=== PATIENT | female | born 1945 | race Caucasian/White ===

== ENCOUNTER 2019-02-25 17:05 | Inpatient (IN) | payer MEDICARE, OTHER ==
[~2019-02-25] VITALS: Ht 170.2 cm; Wt 56.2 kg
--- OUTSIDE RECORDS SUMMARY | 2019-02-25 17:07 | XMS REPORT | Clinical Summary ---
Author Author Martell Religious Organization [place] [facility] Address Unknown Phone Unavailable Care Team Providers Care Parking Regulation Enforcement Officer Name Role Phone Fran Lozoya MD PCP Allergies Comments Active Allergy Reactions Severity Noted Date Acetaminophen-Codeine Codeine GI 02/06/2016 Intolerance Medications End Date Status Medication Sig Dispensed Refills Start Date Active atorvastatin (LIPITOR) 20 Take 1 tablet 0 07/29/201 MG tablet by mouth 8 daily. Active omeprazole (PriLOSEC) 40 Take 1 0 10/26/201 MG capsule capsule by 8 mouth daily. Active albuterol (PROAIR Inhale 1 puff 18 g 3 HFA,PROVENTIL every 6 (six) 8 HFA,VENTOLIN HFA) 90 hours as mcg/actuation inhaler needed for wheezing. 02/11/2020 Active levothyroxine (SYNTHROID, Take 1 tablet 30 tablet 1 LEVOXYL) 75 mcg tablet (75 mcg 9 total) by mouth daily. 02/17/2020 Active clopidogrel (PLAVIX) 75 Take 1 tablet 30 tablet 1 201 mg tablet (75 mg total) 9 by mouth daily. 11/05/2018 Discontinued albuterol (PROAIR Inhale 1 puff 0 HFA,PROVENTIL every 6 (six) HFA,VENTOLIN HFA) 90 hours as mcg/actuation inhaler needed. 01/05/2019 Discontinued levothyroxine (SYNTHROID, Take 1 tablet 0 LEVOXYL) 100 mcg tablet by mouth 8 daily. 02/11/2019 Discontinued levothyroxine (SYNTHROID, Take 1 tablet 30 tablet 0 LEVOXYL) 75 mcg tablet (75 mcg 9 total) by mouth daily. 02/21/2019 oseltamivir (TAMIFLU) 75 Take 1 10 capsule 0 MG capsule capsule (75 9 mg total) by mouth 2 (two) times a day for 5 days. Active Problems Problem Noted Date Bilateral carotid artery stenosis 02/23/2019 Acquired hypothyroidism 11/05/2018 Pure hypercholesterolemia 11/05/2018 Other emphysema 11/05/2018 Type 2 diabetes mellitus with diabetic peripheral angiopathy without 10/08/2016 gangrene, without long-term current use of insulin Encounters Care Team Description Date Type Specialty Jonatan Hardy MD Bilateral carotid artery stenosis (Primary Dx) 02/23/2019 Office Visit Cardiology Fran Lozoya MD 02/17/2019 Telephone Internal Medicine Amarilis Altman MA 02/17/2019 Orders Only Family Medicine Cherelle Atkins MA 02/16/2019 Orders Only Internal Medicine Cherelle Atkins MA 02/11/2019 Telephone Internal Medicine Cherelle Atkins MA 02/11/2019 Orders Only Internal Medicine Fran Lozoya MD 02/03/2019 Telephone Internal Medicine Fran Lozoya MD 01/29/2019 Telephone Internal Medicine Fran Lozoya MD 01/05/2019 Telephone Internal Medicine Amarilis Altman MA Acquired hypothyroidism (Primary Dx); Bilateral carotid bruits; Type 2 diabetes mellitus with diabetic peripheral angiopathy without gangrene, without long-term current use of insulin (HCC) 11/06/2018 Orders Only Family Medicine Fran Lozoya MD Diabetes mellitus type 2, diet-controlled (HCC); Pure hypercholesterolemia; Other emphysema (HCC); Acquired hypothyroidism 11/05/2018 Lab Lab Fran Lozoya MD Acquired hypothyroidism (Primary Dx); Pure hypercholesterolemia; Other emphysema (HCC); Diabetes mellitus type 2, diet-controlled (HCC); Muscular dystrophy; Carotid bruit, unspecified laterality; Gallstones 11/05/2018 Office Visit Internal Medicine Fran Lozoya MD 10/29/2018 Telephone Family Medicine after 02/24/2018 Social History Date Tobacco Use Types Packs/Day Years Used Started: 12/01/2013 Current Every Day Smoker 1 Smokeless Tobacco: Never Used Tobacco Cessation: Ready to Quit: No; Counseling Given: No Alcohol Use Drinks/Week oz/Week Comments No Alcohol Habits Answer Date Recorded How often do you have a drink containing alcohol? Never 11/05/2018 How many drinks containing alcohol do you have on Not asked a typical day when you are drinking? How often do you have six or more drinks on one Not asked occasion? Sex Assigned at Date Recorded Not on file Industry Job Start Date Occupation Not on file Not on file Not on file Travel End Travel History Travel Start No recent travel history available. Last Filed Vital Signs Time Taken Vital Sign Reading 02/23/2019 10:33 AM CDT Blood Pressure 137/68 02/23/2019 10:33 AM CDT Pulse 97 11/05/2018 8:25 AM ASSET SPECIALIST Temperature 36.6 C (97.9 F) - Respiratory Rate - 11/05/2018 8:25 AM ASSET SPECIALIST Oxygen Saturation 95% - Inhaled Oxygen - Concentration 02/23/2019 10:33 AM CDT Weight 53.1 kg (117 lb) 02/23/2019 10:33 AM CDT Height 170.2 cm (5' 7") 02/23/2019 10:33 AM CDT Body Mass Index 18.32 Plan of Treatment Care Team Description Date Type Specialty [place], Raul Sanford MD [address] [address] 03/01/2019 Office Visit Neurology Health Maintenance Due Date Last Done Comments DIABETIC RETINAL EYE EXAM 1944 DIABETIC FOOT EXAM 1954 BREAST CANCER SCREENING 1994 COLON CANCER SCREENING 1994 SHINGLES VACCINES (#1) 1994 65+ PNEUMOCOCCAL VACCINE 2009 (1 of 2 - PCV13) PNEUMOCOCCAL 2009 POLYSACCHARIDE VACCINE AGE 65 AND OVER INFLUENZA VACCINE 07/01/2018 URINE MICROALBUMIN 11/05/2019 11/05/2018 Procedures Comments Procedure Name Priority Date/Time Associated Diagnosis US CAROTID DUPLEX Routine 02/11/2019 Acquired hypothyroidism BILATERAL 2:40 PM CDT Type 2 diabetes mellitus with diabetic peripheral angiopathy without gangrene, without long-term current use of insulin (HCC) Bilateral carotid bruits THYROID STIMULATING Routine 11/05/2018 Acquired hypothyroidism HORMONE 9:20 AM ASSET SPECIALIST HEMOGLOBIN A1C Routine 11/05/2018 Diabetes mellitus type 2, 9:20 AM ASSET SPECIALIST diet-controlled (HCC) LIPID PANEL Routine 11/05/2018 Pure hypercholesterolemia 9:20 AM ASSET SPECIALIST CBC WITH PLATELET AND Routine 11/05/2018 Other emphysema (HCC) DIFFERENTIAL 9:20 AM ASSET SPECIALIST HEPATIC FUNCTION PANEL Routine 11/05/2018 Pure hypercholesterolemia 9:20 AM ASSET SPECIALIST BASIC METABOLIC PANEL Routine 11/05/2018 Diabetes mellitus type 2, 9:20 AM ASSET SPECIALIST diet-controlled (HCC) MICROALBUMIN / CREATININE Routine 11/05/2018 Diabetes mellitus type 2, URINE RATIO 9:20 AM ASSET SPECIALIST diet-controlled (HCC) after 02/24/2018 Results * Us carotid duplex (02/11/2019 2:40 PM CDT) Narrative Performed At [facility] Carotid Artery Ultrasound Report Pat.Name:ENRRIQUE QUINTANA [facility].ID:[id number] St.Date: 02/11/2019 Refer.MD:FRAN LOZOYA MD Exam Time: 2:11:00 PMStudy Type:Carotid DOBAge:1945,73Y Sex: FEMALE Sonogrphr: Tracie Hidalgo RVT Pat. Stat.:[facility] - 4: [id number] Echo Event ID:[id number] Order ID:[id number] Reason for Study:Bilateral carotid bruit, Bilateral occasional vision problems as per patient, Hx of HLD, DM2. Procedures:Colorflow, Grayscale/2D, Pulsed wave Doppler SUMMARY: CAROTID ARTERY SCAN RIGHT:There is hard plaque in the distal common carotid artery. There is hard and calcifiedplaque noted in the bulb extending into the proximal internal and external carotid artery.Colorflow is disturbed with elevated velocities.There is antegrade flow in the vertebral artery. LEFT: There is intimal thickening in the common carotid artery. There is hard and calcifiedplaque noted in the bulb extending into the proximal internal and external carotid artery.Colorflow is disturbed with elevated velocities.There is antegrade flow in the vertebral artery. PRELIMINARY FINDINGS 1.80-99% stenosis in the right proximal internal carotid artery. 2. 50-69% stenosis in the left bulb/internal carotid artery. 3. >50% stenosis in the external carotid artery, bilaterally. PHYSICIAN INTERPRETATION Bilateral carotid duplex exam demonstrates atherosclerotic plaque in both external, bulb and internal carotid arteries with 80-99% stenosis in the right proximal internal carotid artery and 50-69% stenosis in the left bulb/internal carotid artery. >50% stenosis in the external carotid artery, bilaterally. There is antegrade flow in the vertebral artery, bilaterally. Carotid Findings:RightLeft Verteb.Flw AntegradeAntegrade Subclavian TriphasicBiphasic MEASUREMENTS: DOPPLER Right CCA Dist CCA Dist PSV63.4 cm/sCCA Dist EDV17.5 cm/s Right CCA Mid CCA Mid PSV 65.6 cm/sCCA Mid EDV 13.1 cm/s Right CCA Prox CCA Prox PSV70 cm/sCCA Prox EDV12 cm/s Right Bulb Bulb PSV59.1 cm/sBulb EDV14.2 cm/s Right ECA Prox ECA Prox PSV 213 cm/sECA Prox EDV24.3 cm/s Right ICA Dist ICA Dist PSV56.6 cm/Xavier Dist EDV15.4 cm/s Right ICA Mid ICA Mid PSV 72 cm/Xavier Mid EDV 15.4 cm/s Right ICA Prox ICA Prox PSV 503 cm/Xavier Prox EDV 217 cm/s Right Vertebral Vertebral PSV 68.6 cm/sVertebral EDV 13.7 cm/s Right SCA Prox SCA Prox PSV 152 cm/sSCA Prox EDV 0 cm/s Left CCA Dist CCA Dist PSV83.1 cm/sCCA Dist EDV17.5 cm/s Left CCA Mid CCA Mid PSV 89.7 cm/sCCA Mid EDV 21.9 cm/s Left CCA Prox CCA Prox PSV96.2 cm/sCCA Prox EDV21.9 cm/s Left Bulb Bulb PSV85.3 cm/sBulb EDV17.5 cm/s Left ECA ECA HEO150 cm/sECA EDV 13.5 cm/s Left ICA Dist ICA Dist PSV89.5 cm/Xavier Dist EDV26.1 cm/s Left ICA Mid ICA Mid SHQ644 cm/Xavier Mid EDV 40.5 cm/s Left ICA Prox ICA Prox PSV 173 cm/Xavier Prox EDV51.3 cm/s Left Vertebral Vertebral PSV 70.9 cm/sVertebral EDV 14.9 cm/s SCA Prox SCA Prox PSV 148 cm/sSCA Prox EDV 0 cm/s Right ICA/CCA Ratio ICA/CCA PSV 7.67 Left ICA/CCA Ratio ICA/CCA PSV 1.93 Left ECA Prox ECA Prox PSV 224 cm/sECA Prox EDV13 cm/s Signed 02/12/2019 07:22 PM Jonatan Hardy MD Procedure Note Interface, Radiology Results In - 02/12/2019 7:23 PM CDT [facility] Carotid Artery Ultrasound Report Pat.Name: ENRRIQUE QUINTANA Pat.ID: [id number] .Date: 02/11/2019 Refer.MD: FRAN LOZOYA MD Exam Time: 2:11:00 PM Study Type:Carotid Age: 5 1945,73Y Sex: FEMALE Sonogrphr: Tracie Hidalgo RVT Pat. Stat.:Outpatient Room: [facility] Vol: [place], CPT - 4: [id number] Echo Event ID:[id number] Order ID: [id number] Reason for Study:Bilateral carotid bruit, Bilateral occasional vision problems as per patient, Hx of HLD, DM2. Procedures:Colorflow, Grayscale/2D, Pulsed wave Doppler SUMMARY: CAROTID ARTERY SCAN RIGHT: There is hard plaque in the distal common carotid artery. There is hard and calcified plaque noted in the bulb extending into the proximal internal and external carotid artery. Colorflow is disturbed with elevated velocities. There is antegrade flow in the vertebral artery. LEFT: There is intimal thickening in the common carotid artery. There is hard and calcified plaque noted in the bulb extending into the proximal internal and external carotid artery. Colorflow is disturbed with elevated velocities. There is antegrade flow in the vertebral artery. PRELIMINARY FINDINGS 1. 80-99% stenosis in the right proximal internal carotid artery. 2. 50-69% stenosis in the left bulb/internal carotid artery. 3. >50% stenosis in the external carotid artery, bilaterally. PHYSICIAN INTERPRETATION Bilateral carotid duplex exam demonstrates atherosclerotic plaque in both external, bulb and internal carotid arteries with 80-99% stenosis in the right proximal internal carotid artery and 50-69% stenosis in the left bulb/internal carotid artery. >50% stenosis in the external carotid artery, bilaterally. There is antegrade flow in the vertebral artery, bilaterally. Carotid Findings: Right Left Verteb.Flw Antegrade Antegrade Subclavian Triphasic Biphasic MEASUREMENTS: DOPPLER Right CCA Dist CCA Dist PSV 63.4 cm/s CCA Dist EDV 17.5 cm/s Right CCA Mid CCA Mid PSV 65.6 cm/s CCA Mid EDV 13.1 cm/s Right CCA Prox CCA Prox PSV 70 cm/s CCA Prox EDV 12 cm/s Right Bulb Bulb PSV 59.1 cm/s Bulb EDV 14.2 cm/s Right ECA Prox ECA Prox PSV 213 cm/s ECA Prox EDV 24.3 cm/s Right ICA Dist ICA Dist PSV 56.6 cm/s ICA Dist EDV 15.4 cm/s Right ICA Mid ICA Mid PSV 72 cm/s ICA Mid EDV 15.4 cm/s Right ICA Prox ICA Prox PSV 503 cm/s ICA Prox EDV 217 cm/s Right Vertebral Vertebral PSV 68.6 cm/s Vertebral EDV 13.7 cm/s Right SCA Prox SCA Prox PSV 152 cm/s SCA Prox EDV 0 cm/s Left CCA Dist CCA Dist PSV 83.1 cm/s CCA Dist EDV 17.5 cm/s Left CCA Mid CCA Mid PSV 89.7 cm/s CCA Mid EDV 21.9 cm/s Left CCA Prox CCA Prox PSV 96.2 cm/s CCA Prox EDV 21.9 cm/s Left Bulb Bulb PSV 85.3 cm/s Bulb EDV 17.5 cm/s Left ECA ECA PSV 224 cm/s ECA EDV 13.5 cm/s Left ICA Dist ICA Dist PSV 89.5 cm/s ICA Dist EDV 26.1 cm/s Left ICA Mid ICA Mid PSV 135 cm/s ICA Mid EDV 40.5 cm/s Left ICA Prox ICA Prox PSV 173 cm/s ICA Prox EDV 51.3 cm/s Left Vertebral Vertebral PSV 70.9 cm/s Vertebral EDV 14.9 cm/s SCA Prox SCA Prox PSV 148 cm/s SCA Prox EDV 0 cm/s Right ICA/CCA Ratio ICA/CCA PSV 7.67 Left ICA/CCA Ratio ICA/CCA PSV 1.93 Left ECA Prox ECA Prox PSV 224 cm/s ECA Prox EDV 13 cm/s Signed 02/12/2019 07:22 PM Jonatan Hardy MD Performing Organization Address City/State/[facility] Phone Number [facility] [address] [place] [address] * Microalbumin / creatinine urine ratio (11/05/2018 9:20 AM ASSET SPECIALIST) Creatinine, urine, random 72 20 - 275 mg/dL [facility] [place] Microalbumin, urine 1.7 See Note: mg/dL [facility] Comment: [place] Reference Range: Reference Range Not established Microalbumin/creatinine 24 <30 mcg/mg creat [facility] ratio Comment: [place] The ADA defines abnormalities in albumin excretion as follows: Category Result (mcg/mg creatinine) Normal <30 Microalbuminuria 30-299 Clinical albuminuria > NC=332 The ADA recommends that at least two of three specimens collected within a 3-6 month period be abnormal before considering a patient to be within a diagnostic category. Specimen Urine Resulting Agency Comment Performing Organization Information: Site ID: [id number] Name: [facility] Address: [address] [place] [phone] Director: Albertina Wright Performing Organization Address [facility]/Zipcode Phone Number [place] [address] [address] * CBC with platelet and differential (11/05/2018 9:20 AM ASSET SPECIALIST) WBC 7.5 3.8 - 10.8 Thousand/uL [employer] [place] RBC 5.43 (H) 3.80 - 5.10 Million/uL [employer] [place] HGB 14.9 11.7 - 15.5 g/dL [facility] [place] HCT 45.3 (H) 35.0 - 45.0 % [facility] [place] MCV 83.4 80.0 - 100.0 fL [employer] [place] MCH 27.4 27.0 - 33.0 pg [facility] [place] MCHC 32.9 32.0 - 36.0 g/dL [employer] [place] RDW 13.1 11.0 - 15.0 % [facility] [place] Platelet count 195 140 - 400 Thousand/uL [facility] [employer] [place] MPV 9.9 7.5 - 12.5 fL [employer] [place] Neutrophils, absolute 4,620 1,500 - 7,800 cells/uL [employer] [place] Lymphocytes, absolute 2,415 850 - 3,900 cells/uL [employer] [place] Monocytes, absolute 368 200 - 950 cells/uL [employer] [place] Eosinophils, absolute 60 15 - 500 cells/uL [employer] [place] Basophils, absolute 38 0 - 200 cells/uL [employer] [place] Neutrophils 61.6 % [employer] [place] Lymphocytes 32.2 % [employer] [place] Monocytes 4.9 % [employer] [place] Eosinophils 0.8 % [employer] [place] Basophils + RC 0.5 % [employer] [place] Specimen Urine Resulting Agency Comment Performing Organization Information: Site ID: [id number] Name: [facility] Address: [address] [place] [phone] Director: Albertina Wright Performing Organization Address City/[facility]/Zipcode Phone Number [place] [address] [address] * Thyroid stimulating hormone (11/05/2018 9:20 AM ASSET SPECIALIST) TSH 0.06 (L) 0.40 - 4.50 mIU/L [employer] [place] Specimen Urine Resulting Agency Comment Performing Organization Information: Site ID: [id number] Name: [facility] Address: [address] [place] [phone] Director: Albertina Wright Performing Organization Address [facility] [place] [address] * Hemoglobin A1c (11/05/2018 9:20 AM ASSET SPECIALIST) Hemoglobin A1C 6.5 (H) <5.7 % of total Hgb [facility] Comment: [place] For someone without known diabetes, a hemoglobin A1c value of 6.5% or greater indicates that they may have diabetes and this should be confirmed with a follow-up test. For someone with known diabetes, a value <7% indicates that their diabetes is well controlled and a value greater than or equal to 7% indicates suboptimal control. A1c targets should be individualized based on duration of diabetes, age, comorbid conditions, and other considerations. Currently, no consensus exists regarding use of hemoglobin A1c for diagnosis of diabetes for children. Specimen Urine Resulting Agency Comment Performing Organization Information: Site ID: [id number] Name: [facility] Address: [address] [place] [phone] Director: Albertina Wright Performing Organization Address [facility] Phone Number [place] [address] [address] * Hepatic function panel (11/05/2018 9:20 AM ASSET SPECIALIST) Protein 7.1 6.1 - 8.1 g/dL [facility] [employer] [place] Albumin, S 4.3 3.6 - 5.1 g/dL [employer] [place] Globulin, total 2.8 1.9 - 3.7 g/dL (calc) [facility] [employer] [place] Albumin/globulin ratio 1.5 1.0 - 2.5 (calc) [employer] [place] Total bilirubin 0.4 0.2 - 1.2 mg/dL [employer] [place] Bilirubin direct 0.1 < OR=0.2 mg/dL [employer] [place] Bilirubin, indirect 0.3 0.2 - 1.2 mg/dL (calc) [facility] [place] Alkaline phosphatase 87 33 - 130 U/L [facility] [employer] [place] AST 16 10 - 35 U/L [employer] [place] ALT 15 6 - 29 U/L [employer] [place] Specimen Urine Resulting Agency Comment Performing Organization Information: Site ID: [id number] Name: [facility] Address: [address] [place] [phone] Director: Albertina Wright Performing Organization Address [facility] Phone Number [facility] [address] [address] * Lipid panel (11/05/2018 9:20 AM ASSET SPECIALIST) Cholesterol, total 167 <200 mg/dL [facility] HDL cholesterol 78 >50 mg/dL [facility] Triglycerides 72 <150 mg/dL [facility] LDL cholesterol 74 mg/dL (calc) [facility] calculated Comment: [place] Reference range: <100 Desirable range <100 mg/dL for primary prevention; <70 mg/dL for patients with CHD or diabetic patients with > or=2 CHD risk factors. LDL-C is now calculated using the Alka calculation, which is a validated novel method providing better accuracy than the Friedewald equation in the estimation of LDL-C. Guillermo SS et al. [place]. 2013;310(19): 4091-4097 (http://education.[employer]/faq/CXV938) Cholesterol/HDL ratio 2.1 <5.0 (calc) [facility] [place] Non-HDL cholesterol 89 <130 mg/dL (calc) [facility] Comment: [place] For patients with diabetes plus 1 major ASCVD risk factor, treating to a non-HDL-C goal of <100 mg/dL (LDL-C of <70 mg/dL) is considered a therapeutic option. Specimen Urine Resulting Agency Comment Performing Organization Information: Site ID: [id number] Name: [facility] Address: [address] [place] [phone] Director: Albertina Wright Performing Organization Address [facility] Phone Number [employer] [address] [address] * Basic metabolic panel (11/05/2018 9:20 AM ASSET SPECIALIST) Glucose 81 65 - 99 mg/dL [employer] Comment: [place] Fasting reference interval BUN, whole blood 17 7 - 25 mg/dL [employer] [place] Creatinine 0.53 (L) 0.60 - 0.93 mg/dL [employer] Comment: [place] For patients >49 years of age, the reference limit for Creatinine is approximately 13% higher for people identified as -Citizen Of [place]. EGFR Non-Afr. Citizen Of [place] 94 > OR=60 mL/min/1.73m2 [employer] [place] EGFR 108 > OR=60 mL/min/1.73m2 [employer] [place] BUN/creatinine ratio 32 (H) 6 - 22 (calc) [employer] [place] Sodium 141 135 - 146 mmol/L [employer] [place] Potassium 4.3 3.5 - 5.3 mmol/L [facility] Chloride 102 98 - 110 mmol/L [facility] CO2 29 20 - 32 mmol/L [employer] [place] Calcium 9.8 8.6 - 10.4 mg/dL [employer] [place] Specimen Urine Resulting Agency Comment Performing Organization Information: Site ID: [id number] Name: [facility] Address: [address] [place] [address] Director: Albertina Wright Performing Organization Address City/State/Zipcode Phone Number [employer] [place] [address] [place] [address] after 02/24/2018 Insurance Payer Benefit Subscriber ID Type Phone Address Plan / Group MEDICARE MEDICARE xxxxxxxxxxx Medicare [place], [place] PART A AND B CIGNA CIGNA OPEN xxxxxxxxxxx HMO ACCESS/NET WORK Advance Directives Patient has advance care planning documents on file. For more information, ta chan contact: Jasbir Gallo [address] [place] [address]
[2019-02-25] MEDS ORDERED: ALBUTEROL/IPRATROPIUM 3 ML NEB NEB ONE (17:45)
--- NOTE | 2019-02-25 18:04 | Diagnostic Imaging Report ---
EXAMINATION: CXR 1 [facility] COMPARISON: None INDICATION: Shortness of breath for approximately 3 weeks DISCUSSION: Frontal view of the chest obtained at 1740 hours. HEART AND MEDIASTINUM: The cardiomediastinal silhouette is unremarkable. LINES: None. LUNGS: The lungs are diffusely hyperinflated. There is mild bronchial wall thickening. Reticulonodular airspace opacities in the base of the left lung without katie consolidation. No interstitial thickening. PLEURA: No pleural effusion or pneumothorax. BONES AND SOFT TISSUES: No focal osseous lesion. The soft tissues are normal. IMPRESSION: Pulmonary hyperinflation suggestive of COPD. Reticulonodular airspace opacities in the left lung base may represent bronchopneumonia. Signed by: Dr. Tiffanie Lewis MD on 02/25/2019 6:01 PM
[2019-02-25] MEDS ORDERED: ATROVENT HFA12.9 GM (18:12)
[2019-02-25] MEDS ORDERED: ASPIR 8181 MG PO (18:12)
[2019-02-25] MEDS ORDERED: VENTOLIN HFA18 GM (18:12)
[2019-02-25] MEDS ORDERED: PLAVIX75 MG PO (18:12)
[2019-02-25] MEDS ORDERED: LEVOTHYROXINE75 MCG PO (18:12)
[2019-02-25] MEDS ORDERED: ALBUTEROL0.63 MG/3 NEB (18:12)
--- OUTSIDE RECORDS SUMMARY | 2019-02-25 18:47 | XMS REPORT | Clinical Summary ---
Author Author [facility] Address Unknown Phone Unavailable Care Team Providers Care Aerospace Project Manager Name Role Phone Fran Lozoya MD PCP [...] AM CDT Pulse 97 11/05/2018 8:25 AM CHIEF PASSENGER SHIP STEWARD/STEWARDESS Temperature 36.6 C (97.9 F) - Respiratory Rate - 11/05/2018 8:25 AM CHIEF PASSENGER SHIP STEWARD/STEWARDESS Oxygen Saturation 95% - Inhaled Oxygen - Concentration 02/23/2019 10:33 AM CDT Weight 53.1 kg (117 lb) 02/23/2019 10:33 AM CDT Height 170.2 cm (5' 7") 02/23/2019 10:33 AM CDT Body Mass Index 18.32 Plan of Treatment Care Team Description Date Type Specialty [place], Raul Sanford MD [address] [address] 03/01/2019 Office Visit Neurology Health [...] Routine 11/05/2018 Acquired hypothyroidism HORMONE 9:20 AM CHIEF PASSENGER SHIP STEWARD/STEWARDESS HEMOGLOBIN A1C Routine 11/05/2018 Diabetes mellitus type 2, 9:20 AM CHIEF PASSENGER SHIP STEWARD/STEWARDESS diet-controlled (HCC) LIPID PANEL Routine 11/05/2018 Pure hypercholesterolemia 9:20 AM CHIEF PASSENGER SHIP STEWARD/STEWARDESS CBC WITH PLATELET AND Routine 11/05/2018 Other emphysema (HCC) DIFFERENTIAL 9:20 AM CHIEF PASSENGER SHIP STEWARD/STEWARDESS HEPATIC FUNCTION PANEL Routine 11/05/2018 Pure hypercholesterolemia 9:20 AM CHIEF PASSENGER SHIP STEWARD/STEWARDESS BASIC METABOLIC PANEL Routine 11/05/2018 Diabetes mellitus type 2, 9:20 AM CHIEF PASSENGER SHIP STEWARD/STEWARDESS diet-controlled (HCC) MICROALBUMIN / CREATININE Routine 11/05/2018 Diabetes mellitus type 2, URINE RATIO 9:20 AM CHIEF PASSENGER SHIP STEWARD/STEWARDESS diet-controlled (HCC) after 02/24/2018 Results * Us carotid duplex (02/11/2019 2:40 PM CDT) Narrative Performed At [facility] Carotid Artery Ultrasound Report Pat.Name:ENRRIQUE QUINTANA [facility].ID:[id number] St.Date: 02/11/2019 Refer.MD:FRAN LOZOYA MD Exam Time: 2:11:00 PMStudy Type:Carotid DOBAge:1945,73Y Sex: FEMALE Sonogrphr: Tracie Hidalgo RVT Pat. Stat.:[facility] - 4: [address] Echo Event ID:[id number] Order ID:[id number] Reason for Study:Bilateral carotid bruit, Bilateral occasional [...] PSV85.3 cm/sBulb EDV17.5 cm/s Left ECA ECA MPQ279 cm/sECA EDV 13.5 cm/s Left ICA Dist ICA Dist PSV89.5 cm/Xavier Dist EDV26.1 cm/s Left ICA Mid ICA Mid JAE832 cm/Xavier Mid EDV 40.5 cm/s Left ICA [...] Results In - 02/12/2019 7:23 PM CDT [facility] Carotid Artery Ultrasound Report Pat.Name: ENRRIQUE QUINTANA Pat.ID: [id number] .Date: 02/11/2019 Refer.MD: FRAN LOZOYA MD Exam Time: 2:11:00 PM Study Type:Carotid Age: 5 1945,73Y Sex: FEMALE Sonogrphr: Tracie Hidalgo RVT Pat. Stat.:Outpatient Room: [facility] Vol: [place], CPT - 4: 52370 Echo Event ID:[id number] Order ID: [id number] Reason for Study:Bilateral carotid bruit, Bilateral occasional [...] PM Jonatan Hardy MD Performing Organization Address City/State/[facility] Phone Number [facility] [address] [place] [address] * Microalbumin / creatinine urine ratio (11/05/2018 9:20 AM CHIEF PASSENGER SHIP STEWARD/STEWARDESS) Creatinine, urine, random 72 20 - 275 mg/dL [facility] [place] Microalbumin, urine 1.7 See Note: mg/dL [facility] Comment: [place] Reference Range: Reference Range Not established Microalbumin/creatinine 24 <30 mcg/mg creat [facility] ratio Comment: [place] The ADA defines abnormalities in albumin excretion as follows: Category Result (mcg/mg creatinine) Normal <30 Microalbuminuria 30-299 Clinical albuminuria > [id number]=391 The ADA recommends that at least two of three specimens collected within a 3-6 month period be abnormal before considering a patient to be within a diagnostic category. Specimen Urine Resulting Agency Comment Performing Organization Information: Site ID: [id number] Name: [facility] Address: [address] [place] [phone] Director: Albertina Wright Performing Organization Address [facility]/Zipcode Phone Number [employer] [address] [address] * CBC with platelet and differential (11/05/2018 9:20 AM CHIEF PASSENGER SHIP STEWARD/STEWARDESS) WBC 7.5 3.8 - 10.8 Thousand/uL [employer] [place] RBC 5.43 (H) 3.80 - 5.10 Million/uL [facility] [place] HGB 14.9 11.7 - 15.5 g/dL [facility] [place] HCT 45.3 (H) 35.0 - 45.0 % [facility] [place] MCV 83.4 80.0 - 100.0 fL [facility] [place] MCH 27.4 27.0 - 33.0 pg [facility] [place] MCHC 32.9 32.0 - 36.0 g/dL [facility] [place] RDW 13.1 11.0 - 15.0 % [facility] [place] Platelet count 195 140 - 400 Thousand/uL [facility] [place] MPV 9.9 7.5 - 12.5 fL [employer] [place] Neutrophils, absolute 4,620 1,500 - 7,800 cells/uL [facility] [place] Lymphocytes, absolute 2,415 850 - 3,900 cells/uL [facility] [place] Monocytes, absolute 368 200 - 950 cells/uL [facility] [place] Eosinophils, absolute 60 15 - 500 cells/uL [facility] [place] Basophils, absolute 38 0 - 200 cells/uL [facility] [place] Neutrophils 61.6 % [facility] [place] Lymphocytes 32.2 % [facility] [place] Monocytes 4.9 % [facility] [place] Eosinophils 0.8 % [facility] [place] Basophils + RC 0.5 % [facility] [place] Specimen Urine Resulting Agency Comment Performing Organization Information: Site ID: [id number] Name: [facility] Address: [address] [place] [phone] Director: Albertina Wright Performing Organization Address City/[facility]/Zipcode Phone Number [employer] [address] [address] * Thyroid stimulating hormone (11/05/2018 9:20 AM CHIEF PASSENGER SHIP STEWARD/STEWARDESS) TSH 0.06 (L) 0.40 - 4.50 mIU/L [facility] [place] Specimen Urine Resulting Agency Comment Performing Organization Information: Site ID: [id number] Name: [facility] Address: [address] [place] [phone] Director: Albertina Wright Performing Organization Address [facility] Phone [place] [address] * Hemoglobin A1c (11/05/2018 9:20 AM CHIEF PASSENGER SHIP STEWARD/STEWARDESS) Hemoglobin A1C 6.5 (H) <5.7 % of total Hgb [facility] Comment: [place] For someone without known diabetes, a hemoglobin [...] Performing Organization Information: Site ID: [id number] Name: [facility] Address: [address] [place] [phone] Director: Albertina Wright Performing Organization Address [facility] Phone Number [employer] [address] [address] * Hepatic function panel (11/05/2018 9:20 AM CHIEF PASSENGER SHIP STEWARD/STEWARDESS) Protein 7.1 6.1 - 8.1 g/dL [facility] [place] Albumin, S 4.3 3.6 - 5.1 g/dL [facility] [place] Globulin, total 2.8 1.9 - 3.7 g/dL (calc) [facility] [place] Albumin/globulin ratio 1.5 1.0 - 2.5 (calc) [facility] [place] Total bilirubin 0.4 0.2 - 1.2 mg/dL [facility] [place] Bilirubin direct 0.1 < OR=0.2 mg/dL [facility] [place] Bilirubin, indirect 0.3 0.2 - 1.2 mg/dL (calc) [facility] [place] Alkaline phosphatase 87 33 - 130 U/L [facility] [place] AST 16 10 - 35 U/L [facility] [place] ALT 15 6 - 29 U/L [facility] [place] Specimen Urine Resulting Agency Comment Performing Organization Information: Site ID: [id number] Name: [facility] Address: [address] [place] [phone] Director: Albertina Wright Performing Organization Address [facility] Phone Number [facility] [employer] [address] [address] * Lipid panel (11/05/2018 9:20 AM CHIEF PASSENGER SHIP STEWARD/STEWARDESS) Cholesterol, total 167 <200 mg/dL [facility] HDL cholesterol 78 >50 mg/dL [facility] Triglycerides 72 <150 mg/dL [facility] [employer] [facility] [facility] LDL cholesterol 74 mg/dL (calc) [facility] calculated Comment: [place] Reference range: <100 Desirable range <100 mg/dL for primary prevention; <70 mg/dL for patients with CHD or diabetic patients with > or=2 CHD risk factors. LDL-C is now calculated using the Alka calculation, which is a validated novel method providing better accuracy than the Friedewald equation in the estimation of LDL-C. Guillermo SS et al. [place]. 2013;310(19): 7569-5363 (http://education.[employer] [facility]/faq/OJA718) Cholesterol/HDL ratio 2.1 <5.0 (calc) [facility] [place] Non-HDL cholesterol 89 <130 mg/dL (calc) [facility] Comment: [place] For patients with diabetes plus 1 major ASCVD risk factor, treating to a non-HDL-C goal of <100 mg/dL (LDL-C of <70 mg/dL) is considered a therapeutic option. Specimen Urine Resulting Agency Comment Performing Organization Information: Site ID: [id number] Name: [employer] [facility] Address: [address] [place] [phone] Director: Albertina Wright Performing Organization Address [facility] Phone Number [employer] [address] [address] * Basic metabolic panel (11/05/2018 9:20 AM CHIEF PASSENGER SHIP STEWARD/STEWARDESS) Glucose 81 65 - 99 mg/dL [facility] Comment: [place] Fasting reference interval BUN, whole blood 17 7 - 25 mg/dL [facility] [place] Creatinine 0.53 (L) 0.60 - 0.93 mg/dL [facility] Comment: [place] For patients >49 years of age, the reference limit for Creatinine is approximately 13% higher for people identified as -[place]an. EGFR Non-Afr. [place]an 94 > OR=60 mL/min/1.73m2 [facility] [place] EGFR 108 > OR=60 mL/min/1.73m2 [facility] [place] BUN/creatinine ratio 32 (H) 6 - 22 (calc) [facility] [place] Sodium 141 135 - 146 mmol/L [facility] [place] Potassium 4.3 3.5 - 5.3 mmol/L [employer] [facility] Chloride 102 98 - 110 mmol/L [facility] [facility] CO2 29 20 - 32 mmol/L [facility] [place] Calcium 9.8 8.6 - 10.4 mg/dL [facility] [place] Specimen Urine Resulting Agency Comment Performing Organization Information: Site ID: [id number] Name: [facility] Address: [address] [place] [address] Director: Albertina Wright Performing Organization Address City/State/Zipcode Phone Number [employer] [place] [address] [place] [address] after 02/24/2018 Insurance Payer Benefit Subscriber ID Type Phone Address Plan / Group MEDICARE MEDICARE xxxxxxxxxxx Medicare [place] PART A AND B CIGNA CIGNA OPEN xxxxxxxxxxx HMO ACCESS/NET WORK Advance Directives Patient has advance care planning documents on file. For more information, ta chan contact: Jasbir Gallo [address] [place] [address]
--- OUTSIDE RECORDS SUMMARY | 2019-02-25 18:48 | XMS REPORT ---
Author Author [facility] Address Unknown Phone Unavailable Care Team Providers Care Tso Name Role Phone Lita JO Unavailable Unavailable Problems This patient has no known problems. Allergies, Adverse Reactions, Alerts This patient has no known allergies or adverse reactions. Medications This patient has no known medications. Results Test Description Test Time Test Comments Text Results Atomic Results Result Comments CXR 1 [facility] 2019-02-25 17:58:00 [place] [address] Patient Name: ENRRIQUE QUINTANA MR #: [id number] : 1945 Age/Sex: 73/F Req #: [id number] Adm Physician: Ordered by: DARLENE JO MD Report #: [id number] Location: [facility] Room/Bed: Procedure: [id number] [facility] Ex[facility] Date: Exam Time: REPORT STATUS: Signed EXAMINATION: [facility] COMPARISON: None IND ICATION: Shortness of breath for approximately 3 weeks DISCUSSION: Frontal view of the chest obtained at 1740 hours. HEART AND MEDIASTINUM: The cardiomediastinal silhouette is unremarkable. LINES: None. LUNGS: The lungs are diffusely hyperinflated. There is mild bronchial wall thickening. Reticulonodular airspace opacities in the base of the left lung without katie consolidation. No interstitial thickening. PLEURA: No pleural effusion or pneumothorax. BONES AND SOFT TISSUES: No focal osseous lesion. The soft tissues are normal. IMPRESSION: Pulmonary hyperinflation suggestive of COPD. Reticulonodular airspace opacities in the left lung base may represent bronchopneumonia. Signed by: Dr. Zane Lewis MD on 02/25/2019 6:01 PM Dictated By: ZANE LEWIS MD 00 Transcribed By: ROLANDO on 02/25/191800 COPY TO: DARLENE JO MD
[2019-02-25] MEDS: LEVOFLOXACIN 500MG/D5W 100ML IV SCH (19:18)
[2019-02-25] MEDS: ALBUTEROL/IPRATROPIUM 3 ML NEB NEB SCH ×2 (19:18→23:25)
[2019-02-25] MEDS: METHYLPREDNISOLONE SOD SUCC 125 MG/2ML VIAL IV SCH (19:18)
--- NOTE | 2019-02-25 19:24 | NUR ---
report to megan blackburn
--- NOTE | 2019-02-25 19:49 | Diagnostic Imaging Report ---
CT chest pulmonary embolism protocol CPT code: 17354 INDICATION: Shortness of breath for 3 weeks TECHNIQUE: Thin collimation axial images obtained through the level of the pulmonary arteries with additional imaging through the chest following the uneventful administration of 100 cc of low osmolar, nonionic intravenous contrast. Images reconstructed into coronal and sagittal MIPs for complete evaluation of the tortuous and overlapping pulmonary vascular structures and to reduce patient radiation dose. RADIATION DOSE: Total DLP: 223.02 mGy*cm Estimated effective dose: (DLP x 0.015 x size factor) mSv CTDIvol has been reviewed. It is below the limits set by the Radiation Protocol Committee (RPC). Dose reduction techniques used: Automated exposure control, adjustment of the mAs and/or kVp according to patient size, standardized low-dose protocol, and/or iterative reconstruction technique. COMPARISON: Chest x-ray 02/25/19. FINDINGS: Pulmonary artery: No filling defects are appreciated within the main, left, right, lobar or visualized segmental pulmonary arteries to suggest embolism. Main pulmonary artery measures 2.4 cm. Aorta: The thoracic aorta is not aneurysmal. No evidence for dissection. Calcifications are present throughout. Lymph nodes: No enlarged axillary or supraclavicular lymph nodes. There is prominent lymph lymphoid tissue in the haroon and subcarinal spaces. For example, a right hilar lymph node measures 12 mm. Thyroid: Diminutive but otherwise normal. Mediastinum: Normal in size. No pericardial effusion. The esophagus is collapsed. There are no filling defects in the trachea. Lungs: Right Lung: Centrilobular emphysema. There are multifocal groundglass nodules throughout the lung in an apical to basilar gradient. There is diffuse bronchial wall thickening, particularly in the middle and lower lobes with several areas of mucus impaction. Left Lung: Centrilobular emphysema. Multifocal groundglass nodules throughout the lung in the apical to basilar gradient. There is diffuse bronchial wall thickening particularly in the lower lobe. Pleura: No pleural effusion or pleural based mass.. Abdomen: There is either a intrarenal calculus measuring 6 mm early excretion of contrast in the right kidney. Atherosclerotic plaque in the aorta with a noncalcified plaque in the infrarenal aorta measuring 10 mm. Nodule or nodular thickening in the left adrenal gland measures 1.7 x 0.8 cm.. Bones: Degenerative changes of the spine. There are no lytic or blastic lesions.. IMPRESSION: 1. No evidence of pulmonary embolus or aortic dissection. 2. Multifocal groundglass airspace opacities with significant bronchial wall thickening of the lower lobes and areas of mucus impaction with prominent mediastinal and hilar lymph nodes. Findings are consistent with an infectious/inflammatory process such as bronchopneumonia and bronchitis. Recommend follow-up CT in 2-3 months to document interval change/resolution. 3. Emphysema. 4. Atherosclerosis. 5. Potential right intrarenal calculus. 6. Left adrenal nodule. CT dedicated to the adrenal glands is recommended for further evaluation. Signed by: Dr. Tiffanie Lewis MD on 02/25/2019 7:45 PM
--- NOTE | 2019-02-25 22:25 | NUR ---
Received patient from EMS via stretcher. AAOX3, labored breathing only with exertion. Noted severe congestion and cough. On 4L n/c 92% o2. Denies n/v/d. Applied tele monitor. Has LFA20# s/l. Call light within reach and instructed to call for assistance. Patient verbalized understanding. Refused bed alarm.
[2019-02-25 22:29] VITALS: BP 159/75
[2019-02-25 22:31] VITALS: BP 159/75
[2019-02-25 23:20] VITALS: BP 159/75
[2019-02-26] VITALS (8 sets, daily range): BP systolic 131–151; BP diastolic 61–74
[2019-02-26] MEDS: ALBUTEROL/IPRATROPIUM 3 ML NEB NEB SCH ×6 (03:10→23:00)
[2019-02-26] MEDS: METHYLPREDNISOLONE SOD SUCC 125 MG/2ML VIAL IV SCH ×3 (05:22→22:09)
[2019-02-26] MEDS ORDERED: ONDANSETRON HCL INJ 2MG/ML 2ML 2 MG/ML VIAL IV PRN (10:45)
[2019-02-26] MEDS ORDERED: ACETAMINOPHEN 325 MG TAB PO PRN (10:45)
[2019-02-26] MEDS ORDERED: BENZONATATE 100 MG CAP PO PRN (10:45)
[2019-02-26] MEDS: CLOPIDOGREL BISULFATE 75 MG TAB PO SCH (10:50)
[2019-02-26] MEDS: LEVOTHYROXINE SODIUM 75 MCG TAB PO SCH (10:50)
[2019-02-26] MEDS: ASPIRIN 81 MG CHEW TAB PO SCH (10:50)
[2019-02-26 11:17] LABS: BASOPHILS % 0.2 % (0.0-1.0); HEMATOCRIT 45.9 % (34.2-44.1); LYMPHOCYTES # (AUTO) 0.5 (1.0-3.2); LYMPHOCYTES % 4.5 % (18.0-39.1); MEAN CORPUSCULAR HEMOGLOBIN 27.9 pg (28-32); MEAN CORPUSCULAR HGB CONC 32.7 g/dL (31-35); MEAN CORPUSCULAR VOLUME 85.3 fL (81-99); MONOCYTES # (AUTO) 0.1 (0.2-0.8); MONOCYTES % 0.7 % (4.4-11.3); NEUTROPHILS # (AUTO) 9.3 (2.1-6.9); NEUTROPHILS % 93.8 % (38.7-80.0); PLATELET COUNT 264 x10e3/uL (140-360); RED BLOOD COUNT 5.38 x10e6/uL (3.6-5.1); RED CELL DISTRIBUTION WIDTH 13.3 % (11.7-14.4)
[2019-02-26 11:33] LABS: ANION GAP 12.8 mmol/L (8-16); BLOOD UREA NITROGEN 24 mg/dL (7-26); BUN/CREATININE RATIO 38 (6-25); CALCIUM 9.8 mg/dL (8.4-10.2); CARBON DIOXIDE 33 mmol/L (22-29); CHLORIDE 96 mmol/L (98-107); CREATININE, SERUM 0.64 mg/dL (0.57-1.11); EST GLOMERULAR FILTRATION RATE > 60 ML/MIN (60-); GLUCOSE 234 mg/dL (74-118); POTASSIUM 3.8 mmol/L (3.5-5.1); SODIUM 138 mmol/L (136-145)
[2019-02-26] MEDS ORDERED: DEXTROSE 50% SYRINGE 50 ML IV PRN (13:00)
[2019-02-26] MEDS: ENOXAPARIN SOD INJ 40 MG/0.4 ML SYR SC SCH ×2 (14:53→15:46)
[2019-02-26] MEDS: BENZONATATE 100 MG CAP PO SCH ×2 (14:54→20:29)
--- NOTE | 2019-02-26 16:02 | NUR ---
PATIENT WITH HOME O2 EVAL. CM SPOKE TO RN AND DR. SEGAL REGARDING PATIENT PLAN OF CARE. PATIENT NOT GETTING DISCHARGED UNTIL FRIDAY. PENDING HOME O2 EVAL BY RT TO SEND CLINICAL TO INSURANCE. AND RE-EVAL TO BE SENT TO HOME O2 COMPANY FRIDAY RIGHT BEFORE DISCHARGE. WEEKEND CM/ SW TO FOLLOW UP AND SEND CLINICAL SO TANKS CAN BE READY AT BEDSIDE FOR DISCHARGE FRIDAY.
[2019-02-26] MEDS ORDERED: SODIUM CHLORIDE 0.9% 250ML 250 ML ONE (16:40)
[2019-02-26] MEDS: LEVOFLOXACIN 500MG/D5W 100ML IV SCH (16:51)
[2019-02-26] MEDS: INSULIN LISPRO 100 UNIT/1 ML 3ML VIAL SQ SCH ×2 (16:52→21:30)
--- NOTE | 2019-02-26 16:56 | NUR ---
Nutrition Intervention Note RD Recommendation(s) for Physician: -Continue ADA 1800 diet as ordered; downgrade diet texture to chopped -Pt complained of swallowing issue due to hx of PMD but refused HYBRID CAR MECHANIC evaluation -Rec Glucerna BID to promote protein-energy intake -Discussed menu options and obtained food preferences -The patient meets criteria for unspecified SEVERE protein-calorie malnutrition. Plan of Care: RD following, monitoring for tolerance and adequacy, ONS rec Nutrition reason for involvement: Nutrition Risk Trigger - MST, BMI <18.5kg/m2 RD Assessment 02/26 73yo F, who was admitted for SOB. BG at 234 with Solu-Medrol. Visited pt in the room. Pt reported poor appetite >2weeks with 12lbs weight loss. Pt had some muscle and fat loss upon NFPA. Pt complained of constipation for 9weeks due to colon blockage. CT abd/pel pending. Pt also reported chronic swallowing difficulty due to hx of PMD. Pt had done multiple swallow studies in the past; pt refused HYBRID CAR MECHANIC eval while in the hospital. Pt can only tolerate chopped texture due to missing teeth. No thickener used at home. RD rec Glucerna BID; pt was willing to try. Will continue to monitor and follow. Principal Problems/Diagnoses: COPD exacerbation PMH: DM GI: abdomen soft, non-tender, flatus present Skin: No pressure wound noted Labs: (02/26) glucose 234 H Meds: (02/26) solu-medrol, synthroid Ht: 67in Wt: 112lb BMI: 17.6kg/m2 IBW: 135lb Malnutrition Evaluation (02/26) The patient meets criteria for unspecified SEVERE protein-calorie malnutrition. Energy intake: <75% of estimated energy requirements for >7 days Weight loss: >2% in 1week (Acute) Fat loss: Severe clavicle protrusion, somewhat hollow orbital region Muscle loss: Severe temporal depression, protrusion of acromion process Supporting Evidence: Fluid accumulation: unable to evaluate Functional Status: no changes Nutrition Prescription (Diet Order): ADA diet Estimated Nutritional Needs: Calories: 1530 1785kcal(30-35kcal/kg/d) Weight used: current BW Protein: 77 102g (1.5-2g/kg/d) Weight used: current BW Diet Adequacy: Not meeting calorie needs, Not meeting protein needs Diet Education Needs Assessment: Diet education indicated, but patient not appropriate for education at this time. Nutrition Care Level: high Nutrition Diagnosis: Malnutrition related to acute illness as evidenced by recent weight loss, loss of muscle and fat. Goal: Patient will meet 75-100% of estimated needs by follow up Progress: N/A Interventions: Carb/texture-modified diet, Commercial beverage Monitoring/Evaluation: Total energy intake, Total protein intake, Modified diet, Liquid supplement, Weight change Signed: Nelli Arcos MS, RD, LD
--- NOTE | 2019-02-26 18:22 | Consultation ---
DATE OF CONSULTATION: 02/26/2019 Pulmonary Consultation HISTORY OF PRESENT ILLNESS: Ms. Zarco is a 73-year-old white woman with multiple medical problems, who presented yesterday in the office for a second visit. For over a week, she had been having increasing shortness of breath, cough, purulent sputum production. She was also out of her maintenance medication and taking her rescue inhaler. She is having poor oral intake. She thought she had the flu at one point because both her and son had it, has taken Tamiflu even. In the office, she was found to have an oxygen saturation of 82% on room air, which is new for her. She was having cough. She was tachypneic. She was treated with 180 mg of intramuscular Depo-Medrone and breathing treatment with oxygen saturations only improving to about 84%. She was counseled on the importance of going to the hospital, which interestingly she attempted to go to [facility], but due to four [address], they walked out. She did agree to go to the hospital on the and is here, now admitted to room 201. She has been getting breathing treatments, started on Levaquin and IV steroids and has some improvement. PAST MEDICAL HISTORY: Notable for severe COPD/emphysema, FEV1 is approximately 55% in 2013. She has oculopharyngeal muscular dystrophy, gastroesophageal reflux, diabetes, bilateral carotid stenosis, hypothyroidism, allergic rhinitis/postnasal drip. PAST SURGICAL HISTORY: Eyelid lift, bladder lift, and tubal ligation. FAMILY HISTORY: Her father and mother both had heart disease. Her mother also had oculopharyngeal muscular dystrophy. SOCIAL HISTORY: She is . She has one older child, who does not live at home. She is smoking heavily in the past, 2 packs per day, but apparently she stopped smoking on February 25. She used to be a nurse at [employer]. ALLERGIES: CODEINE. REVIEW OF SYSTEMS: Noncontributory except as included above. PHYSICAL EXAMINATION: VITAL SIGNS: She has been afebrile since she has been here. Heart rates in the 70s to 80s. Respiratory rate is 18 to 21. Blood pressure most recently was 149/74. Oxygen saturation has been 92% to 95% on 4 L nasal cannula. When I checked her on room air, she is 84%. GENERAL APPEARANCE: This is a thin chronically ill-appearing woman, not in distress at this time. The tachypnea does seem to be improved. HEENT: Her head is normocephalic. She does have a small temporal wasting. Mucous membranes are moist without lesions. NECK: Supple. Trachea is midline. There is no palpable adenopathy or thyromegaly. CHEST: Some wheezes, although not as pronounced as yesterday. Few rhonchi. HEART: Regular rhythm without murmurs, rubs, or gallops. ABDOMEN: Soft, nontender. There is no rebound or guarding. EXTREMITIES: There is no cyanosis, clubbing, nor edema. SKIN: Warm and dry without rash. DATA: White count at admission was 9.3, hemoglobin 15, hematocrit 46%, 264,000 platelets and left shift with 94% segmented neutrophils. Chemistry is not particularly remarkable. Sodium bicarbonate was 33, glucose 234, and TSH was 0.135. IMAGING: Chest x-ray shows hyperinflated changes of COPD with some linear reticular opacities at bases which is similar to that was seen in the office, which from previous. She did have a CAT scan, CT PE protocol, there were no filling defects suggestive of PE. Aortic calcifications were seen. The lungs show marked central lobular emphysema with lower zone multifocal ground glass nodules, it is a mucus plugging. Of note, in the abdomen, there was an enlarged left adrenal gland. ASSESSMENT: 1. Acute on chronic respiratory failure. 2. Chronic obstructive pulmonary disease with acute exacerbation. 3. Pneumonia, multifocal, bilateral/atypical. 4. Carotid stenosis by history. 5. Left adrenal nodule. 6. Diabetes mellitus with hyperglycemia. 7. Oculopharyngeal muscular dystrophy. RECOMMENDATIONS: We will continue her on oxygen. She will need evaluation for home oxygen. Continue IV steroids. Continue IV antibiotics with Levaquin to cover atypical. Continue nebulized bronchodilators. She will need home neb machine. We will also check an ABG to evaluate for hypercarbia. She will have sputum culture and respiratory and viral panel as well. We will plan DVT prophylaxis with Lovenox. We will get B-natriuretic peptide as well in the morning. She does have multiple comorbidities that could lead to heart disease as well. For now, we will defer any workup of the adrenal nodule until she is more stable and then prior to discharge, she can get a dedicated either CT or MRI of the adrenal gland. MD LESIA Maier/BLANK /[id number]
--- NOTE | 2019-02-26 19:51 | Diagnostic Imaging Report ---
CT Abdomen Unenhanced CPT CODE: 30492 INDICATION: Left adrenal nodule TECHNIQUE: 2.5 mm collimation axial images obtained from lung base to iliac crest without intravenous contrast.. RADIATION DOSE: Total DLP: 96.98 mGy*cm Estimated effective dose: (DLP x 0.015 x size factor) mSv CTDIvol has been reviewed. It is below the limits set by the Radiation Protocol Committee (RPC). Dose reduction techniques used: Automated exposure control, adjustment of the mAs and/or kVp according to patient size, standardized low-dose protocol, and/or iterative reconstruction technique. Comparison: CT chest 02/25/2019. FINDINGS: Lung bases: Centrilobular emphysema. Multifocal groundglass nodules and bronchial wall thickening throughout without significant change. Calcified granuloma in the middle lobe is stable. Visualized portion of the mediastinum is unremarkable. Liver: Normal in attenuation without mass. Gallbladder: Present. No wall thickening, gallstone or ductal dilatation.. Pancreas: Normal in attenuation without mass or ductal dilatation. Spleen: Normal in attenuation and size without mass. Adrenal Glands: The right adrenal gland is normal. Left adrenal gland contains a nodule measuring 9 x 10 mm and -6 Hounsfield units consistent with an adenoma. Kidneys: Very hyperattenuating and somewhat wedge-shaped focus in the cortex of the right kidney measures 10 mm and extends to the renal calyx and suggestive of excreted contrast. No hydronephrosis. Left kidney is normal. Bowel: Stomach:Normal. Small bowel:Visualized portions are normal in diameter with normal wall thickness. Large bowel:Visualized portions are normal in diameter with normal wall thickness. Aorta: Diffusely calcified and normal in morphology Lymph Nodes: No enlarged abdominal or retroperitoneal lymph nodes. No free fluid or fluid collection. Bones: Degenerative changes of the spine. There is a bone island in the superior endplate of L1 Soft tissues: Unremarkable. IMPRESSION: 1. Left adrenal adenoma. 2. Multifocal pulmonary opacities suggestive of bronchopneumonia. No significant progression on visualized images. Signed by: Dr. Tiffanie Lewis MD on 02/26/2019 7:47 PM
[2019-02-27] VITALS (8 sets, daily range): BP systolic 126–160; BP diastolic 60–73
[2019-02-27] MEDS: ALBUTEROL/IPRATROPIUM 3 ML NEB NEB SCH ×6 (02:25→23:00)
[2019-02-27 04:57] LABS: HEMATOCRIT 47.7 % (34.2-44.1); HEMOGLOBIN 15.3 g/dL (12.0-16.0); MEAN CORPUSCULAR HEMOGLOBIN 27.8 pg (28-32); MEAN CORPUSCULAR HGB CONC 32.1 g/dL (31-35); MEAN CORPUSCULAR VOLUME 86.6 fL (81-99); PLATELET COUNT 299 x10e3/uL (140-360); RED BLOOD COUNT 5.51 x10e6/uL (3.6-5.1); RED CELL DISTRIBUTION WIDTH 13.3 % (11.7-14.4)
[2019-02-27] MEDS: METHYLPREDNISOLONE SOD SUCC 125 MG/2ML VIAL IV SCH ×3 (05:17→21:35)
[2019-02-27 05:22] LABS: ALANINE AMINOTRANSFERASE 18 IU/L (0-55); ALBUMIN 2.9 g/dL (3.5-5.0); ALBUMIN/GLOBULIN RATIO 0.6 (0.8-2.0); ALKALINE PHOSPHATASE 78 IU/L (40-150); BLOOD UREA NITROGEN 20 mg/dL (7-26); BUN/CREATININE RATIO 27 (6-25); CALCIUM 9.8 mg/dL (8.4-10.2); CARBON DIOXIDE 33 mmol/L (22-29); CHLORIDE 95 mmol/L (98-107); CREATININE, SERUM 0.73 mg/dL (0.57-1.11); EST GLOMERULAR FILTRATION RATE > 60 ML/MIN (60-); GLUCOSE 162 mg/dL (74-118); SODIUM 139 mmol/L (136-145)
[2019-02-27 07:47] LABS: LYMPHOCYTES % (MANUAL) 6 % (19-48); MONOCYTES % (MANUAL) 3 % (3.4-9.0); NEUTROPHILS % (MANUAL) 91 % (40-74); PLATELET ESTIMATE ADEQUATE; PLATELET MORPHOLOGY COMMENT NORMAL; RBC MORPHOLOGY COMMENT NORMAL
[2019-02-27] MEDS: CLOPIDOGREL BISULFATE 75 MG TAB PO SCH (08:15)
[2019-02-27] MEDS: BENZONATATE 100 MG CAP PO SCH ×3 (08:15→21:35)
[2019-02-27] MEDS: ASPIRIN 81 MG CHEW TAB PO SCH (08:15)
[2019-02-27] MEDS: LEVOTHYROXINE SODIUM 75 MCG TAB PO SCH (08:15)
[2019-02-27] MEDS: INSULIN LISPRO 100 UNIT/1 ML 3ML VIAL SQ SCH ×4 (08:17→21:35)
--- NOTE | 2019-02-27 14:00 | NUR ---
Pt refused ABGs, physician notified and states that is ok.
[2019-02-27] MEDS ORDERED: SODIUM CHLORIDE 0.9% 250ML 250 ML ONE (16:12)
[2019-02-27] MEDS: LEVOFLOXACIN 500MG/D5W 100ML IV SCH (16:41)
[2019-02-27] MEDS: ENOXAPARIN SOD INJ 40 MG/0.4 ML SYR SC SCH (16:41)
--- NOTE | 2019-02-27 19:10 | NUR ---
Received patient awake on bed, family member at the bedside, on O2 support, not in distress. Call light within easy reach, advised to call for assistance when needed, will continue to monitor
[2019-02-28] VITALS (8 sets, daily range): BP systolic 114–166; BP diastolic 63–77
[2019-02-28] MEDS: ALBUTEROL/IPRATROPIUM 3 ML NEB NEB SCH ×6 (03:00→23:25)
[2019-02-28] MEDS: METHYLPREDNISOLONE SOD SUCC 125 MG/2ML VIAL IV SCH ×3 (06:07→20:15)
[2019-02-28] MEDS: LEVOTHYROXINE SODIUM 75 MCG TAB PO SCH (08:49)
[2019-02-28] MEDS: CLOPIDOGREL BISULFATE 75 MG TAB PO SCH (08:49)
[2019-02-28] MEDS: ASPIRIN 81 MG CHEW TAB PO SCH (08:49)
[2019-02-28] MEDS: BENZONATATE 100 MG CAP PO SCH ×3 (08:49→20:15)
[2019-02-28] MEDS: INSULIN LISPRO 100 UNIT/1 ML 3ML VIAL SQ SCH ×4 (09:04→21:07)
[2019-02-28] MEDS: LEVOFLOXACIN 500MG/D5W 100ML IV SCH (17:29)
[2019-02-28] MEDS: ENOXAPARIN SOD INJ 40 MG/0.4 ML SYR SC SCH (17:29)
[2019-03-01] VITALS (8 sets, daily range): BP systolic 144–188; BP diastolic 66–84
[2019-03-01] MEDS: ALBUTEROL/IPRATROPIUM 3 ML NEB NEB SCH ×6 (03:20→23:00)
[2019-03-01] MEDS: METHYLPREDNISOLONE SOD SUCC 125 MG/2ML VIAL IV SCH (06:03)
--- NOTE | 2019-03-01 07:00 | NUR ---
RCD PT AT BED PT IS ALERT AND ORIENTED PT RESTING ON BED IV PATENT BED LOW AND LOCKED CALL LIGHT IN REACH
[2019-03-01] MEDS: INSULIN LISPRO 100 UNIT/1 ML 3ML VIAL SQ SCH ×4 (07:30→21:10)
[2019-03-01] MEDS: BENZONATATE 100 MG CAP PO SCH ×3 (09:00→20:19)
[2019-03-01] MEDS: ASPIRIN 81 MG CHEW TAB PO SCH (09:00)
[2019-03-01] MEDS: LEVOTHYROXINE SODIUM 75 MCG TAB PO SCH (09:00)
[2019-03-01] MEDS: CLOPIDOGREL BISULFATE 75 MG TAB PO SCH (09:00)
--- NOTE | 2019-03-01 10:50 | NUR ---
CASE MANAGEMENT ASSESSMENT Half Backer to bedside to discuss plan of care with patient/family. CM/SW role and care transitions discussed. Anticipated discharge plan discussed along with duration of care. CM/SW discussed patients right to make decisions in care. CM/SW work hours given. Patient lives: with Shane Guardado and son Admit/Transfer: thru ED Hospital/ER visits since last admit: last hospitalization was in 2010 POA/Emergency contact: Shane Guardado [phone] Current/Previous Home Health: none; pt and both declines need for home health services. stated that they follow closely with PCP PCP/Follow-up Care: Dr. Oconnor in [place] - advised pt to follow up with MD within 5 days of discharge. Advised pt to call and set up appointment while she is in the hospital to ensure she can get in sooner. Pt acknowledged. will call for appointment. Current/Previous DME: none. pt is independent Medications (referring to index hospitalization or the first time you were in the hospital) a. Were changes made in your medications when you were in the hospital on [date of index hospitalization]? n/a b. Did you understand the changes? n/a c. Were you able to obtain your new medications right away? n/a d. Were you able to take your medications like the doctor wanted you to? n/a e. Did the hospital give you an accurate, easy to understand list of medications when you left? n/a Scale of 1-10 how comfortable does patient feel with disease management in outpatient settin Other Services: none Employment Status: retired Areas of Concerns: COPD exacerbation Referral Needs: declines home health need. home o2 eval done, pt does not qualify. 94% on RA, 92% on exertion Education Needs: COPD IMM/BLANK given and signed (if applicable): IMM explained. pt verbalized understanding. Signed copy placed in chart. Copy to pt. Goal for discharge: Home with no needs CM/SW left business card at the bedside with contact information. Name and number was also written on the patients whiteboard. Patient verbalized understanding of discussion. CM will follow-up with ongoing discharge and transition of care needs.
[2019-03-01] MEDS ORDERED: METHYLPREDNISOLONE SOD SUCC 125 MG/2ML VIAL IV SCH (17:00)
[2019-03-01] MEDS: ENOXAPARIN SOD INJ 40 MG/0.4 ML SYR SC SCH (17:00)
[2019-03-01] MEDS: METHYLPREDNISOLONE SOD SUCC 40 MG/ML VIAL 1ML IV SCH (17:00)
--- NOTE | 2019-03-01 17:05 | NUR ---
Follow-up Note RD Recommendation(s) for Physician: - Continue ADA 1800 diet as ordered; downgrade diet texture to chopped - Pt complained of swallowing issue due to hx of PMD but refused WORK COUNSELOR evaluation - Continue Glucerna BID to promote protein-energy intake - Discussed menu options and obtained food preferences - The patient meets criteria for unspecified SEVERE protein-calorie malnutrition. Plan of Care: RD following, monitoring for tolerance and adequacy, ONS rec Nutrition reason for involvement: Follow up RD Assessment 03/01 - Pt was discussed during AM rounds. Continued to be on Solu-Medrol and abx. BG 180 - 230 on insulin. Visited pt in the room. Pt reported good appetite but was upset because the grits for breakfast this AM was bad. Pt didn't want staff to come in to her room and take her meal order for the rest of the day. RD was able to comfort pt and obtain meal orders for dinner and breakfast. Pt liked the Glucerna and drank all of them. RD rec to continue Glucerna at home due to low BW. No GI complains noted. Will continue to monitor and follow. 02/26 73yo F, who was admitted for SOB. BG at 234 with Solu-Medrol. Visited pt in the room. Pt reported poor appetite >2weeks with 12lbs weight loss. Pt had some muscle and fat loss upon NFPA. Pt complained of constipation for 9weeks due to colon blockage. CT abd/pel pending. Pt also reported chronic swallowing difficulty due to hx of PMD. Pt had done multiple swallow studies in the past; pt refused WORK COUNSELOR eval while in the hospital. Pt can only tolerate chopped texture due to missing teeth. No thickener used at home. RD rec Glucerna BID; pt was willing to try. Will continue to monitor and follow. Principal Problems/Diagnoses: COPD exacerbation PMH: DM GI: abdomen soft, non-tender, flatus present Skin: No pressure wound noted Labs: No labs on 03/01 (02/26) glucose 234 H Meds: (02/26) solu-medrol, synthroid, insulin Ht: 67in Wt: 112lb BMI: 17.6kg/m2 IBW: 135lb Malnutrition Evaluation (02/26) The patient meets criteria for unspecified SEVERE protein-calorie malnutrition. Energy intake: <75% of estimated energy requirements for >7 days Weight loss: >2% in 1week (Acute) Fat loss: Severe clavicle protrusion, somewhat hollow orbital region Muscle loss: Severe temporal depression, protrusion of acromion process Supporting Evidence: Fluid accumulation: unable to evaluate Functional Status: no changes Nutrition Prescription (Diet Order): ADA diet Estimated Nutritional Needs: Calories: 1530 1785kcal (30-35kcal/kg/d) Weight used: current BW Protein: 77 102g (1.5-2g/kg/d) Weight used: current BW Diet Adequacy: meeting calorie needs, meeting protein needs Diet Education Needs Assessment: Diet education indicated, but patient not appropriate for education at this time. Nutrition Care Level: mod Nutrition Diagnosis: Malnutrition related to acute illness as evidenced by recent weight loss, loss of muscle and fat. Goal: Patient will meet 75-100% of estimated needs by follow up Progress: Progressing Interventions: Carb/texture-modified diet, Commercial beverage Monitoring/Evaluation: Total energy intake, Total protein intake, Modified diet, Liquid supplement, Weight change Signed: Nelli Arcos MS, RD, LD
[2019-03-01] MEDS: LEVOFLOXACIN 500MG/D5W 100ML IV SCH (17:17)
--- NOTE | 2019-03-01 18:40 | NUR ---
PT RESTING ON BED BED SIDE REPORT GIVEN TO ONCOMING NURSE
[2019-03-02] VITALS (8 sets, daily range): BP systolic 147–168; BP diastolic 68–78
[2019-03-02] MEDS: ALBUTEROL/IPRATROPIUM 3 ML NEB NEB SCH ×6 (04:00→23:00)
[2019-03-02 05:04] LABS: HEMATOCRIT 44.5 % (34.2-44.1); HEMOGLOBIN 14.1 g/dL (12.0-16.0); MEAN CORPUSCULAR HEMOGLOBIN 27.6 pg (28-32); MEAN CORPUSCULAR HGB CONC 31.7 g/dL (31-35); MEAN CORPUSCULAR VOLUME 87.3 fL (81-99); PLATELET COUNT 287 x10e3/uL (140-360); RED CELL DISTRIBUTION WIDTH 13.6 % (11.7-14.4)
[2019-03-02 05:23] LABS: ALANINE AMINOTRANSFERASE 29 IU/L (0-55); ALBUMIN 2.9 g/dL (3.5-5.0); ALBUMIN/GLOBULIN RATIO 0.8 (0.8-2.0); ALKALINE PHOSPHATASE 55 IU/L (40-150); ANION GAP 12.1 mmol/L (8-16); BLOOD UREA NITROGEN 14 mg/dL (7-26); BUN/CREATININE RATIO 23 (6-25); CALCIUM 9.5 mg/dL (8.4-10.2); CARBON DIOXIDE 33 mmol/L (22-29); CHLORIDE 96 mmol/L (98-107); EST GLOMERULAR FILTRATION RATE > 60 ML/MIN (60-); GLUCOSE 130 mg/dL (74-118); POTASSIUM 4.1 mmol/L (3.5-5.1); SODIUM 137 mmol/L (136-145)
--- NOTE | 2019-03-02 07:00 | NUR ---
REPORT GIVEN TO ONCOMING NURSE.WALKING ROUNDS MADE.PT RESTING IN BED WITH NO S/S OF DISTRESS.
--- NOTE | 2019-03-02 07:10 | NUR ---
RCD PT AT BED PT IS ALERT AND ORIENTED PT RESTING ON BED IV PATENT BED LOW AND LOCKED CALL LIGHT IN REACH
[2019-03-02] MEDS: INSULIN LISPRO 100 UNIT/1 ML 3ML VIAL SQ SCH ×4 (07:30→21:23)
[2019-03-02 08:19] LABS: LYMPHOCYTES % (MANUAL) 12 % (19-48); MONOCYTES % (MANUAL) 1 % (3.4-9.0); NEUTROPHILS % (MANUAL) 85 % (40-74)
[2019-03-02 08:20] LABS: PLATELET ESTIMATE ADEQUATE; PLATELET MORPHOLOGY COMMENT NORMAL; RBC MORPHOLOGY COMMENT NORMAL
[2019-03-02] MEDS: LEVOTHYROXINE SODIUM 75 MCG TAB PO SCH (09:00)
[2019-03-02] MEDS: METHYLPREDNISOLONE SOD SUCC 40 MG/ML VIAL 1ML IV SCH ×2 (09:00→16:53)
[2019-03-02] MEDS: ASPIRIN 81 MG CHEW TAB PO SCH (09:00)
[2019-03-02] MEDS: CLOPIDOGREL BISULFATE 75 MG TAB PO SCH (09:00)
[2019-03-02] MEDS: BENZONATATE 100 MG CAP PO SCH ×3 (09:00→21:00)
[2019-03-02] MEDS: ENOXAPARIN SOD INJ 40 MG/0.4 ML SYR SC SCH (16:53)
[2019-03-02] MEDS: LEVOFLOXACIN 500MG/D5W 100ML IV SCH (17:23)
--- NOTE | 2019-03-02 18:47 | NUR ---
PT RESTING ON BED BED SIDE REPORT GIVEN TO ONCOMING NURSE
--- NOTE | 2019-03-02 22:45 | NUR ---
CALL PLACED TO DR WILLSON TO NOTIFY PT'S BP.PROMPTED TO LEAVE MESSAGE.MESSAGE LEFT.
[2019-03-03] VITALS: BP 180/82
[2019-03-03 04:00] VITALS: BP 163/72
[2019-03-03] MEDS: ALBUTEROL/IPRATROPIUM 3 ML NEB NEB SCH ×2 (06:30→10:58)
--- NOTE | 2019-03-03 07:18 | NUR ---
REPORT GIVEN TO ONCOMING NURSE,WALKING ROUNDS MADE.PT RESTING IN BED WITH NO S/S OF DISTRESS.
[2019-03-03] MEDS: INSULIN LISPRO 100 UNIT/1 ML 3ML VIAL SQ SCH (07:30)
[2019-03-03 07:53] VITALS: BP 152/68
[2019-03-03] MEDS: CLOPIDOGREL BISULFATE 75 MG TAB PO SCH (08:45)
[2019-03-03] MEDS: ASPIRIN 81 MG CHEW TAB PO SCH (08:45)
[2019-03-03] MEDS: METHYLPREDNISOLONE SOD SUCC 40 MG/ML VIAL 1ML IV SCH (08:45)
[2019-03-03] MEDS: BENZONATATE 100 MG CAP PO SCH (08:45)
[2019-03-03] MEDS: LEVOTHYROXINE SODIUM 75 MCG TAB PO SCH (08:45)
[2019-03-03 10:16] VITALS: BP 152/68
--- NOTE | 2019-03-03 10:38 | NUR ---
IMM letter delivered and explained to pt. She verbalized understanding. Signed copy placed in chart. Copy to pt.
[2019-03-03] MEDS ORDERED: PROAIR HFA INH8.5 GM INH (10:41)
[2019-03-03] MEDS ORDERED: TESSALON PERLE100 MG PO (10:42)
[2019-03-03] MEDS ORDERED: ADVAIR 500/501 EA INH (10:44)
[2019-03-03] MEDS ORDERED: ONDANSETRON HCL 4 MG ORAL DISINTEGRATING TAB PO PRN (10:45)
--- NOTE | 2019-03-03 12:40 | NUR ---
PATIENT VERBALIZED UNDERSTANDING OF DISCHARGE INSTRUCTIONS, IV REMOVED, WILL FOLLOW UP WITH IN 2 WEEKS, WHEELED OUT VIA WHEELCHAIR OUTSIDE, WAITING IN VEHICLE.
--- NOTE | 2019-03-09 06:29 | Discharge Summary ---
FINAL DIAGNOSES: 1. Bibasilar pneumonia. 2. Acute exacerbation of chronic obstructive pulmonary disease with acute bronchitis and community-acquired pneumonia without sepsis. 3. Incidental finding of left adrenal nodule. 4. Acute hypoxia, resolved. 5. Acute tachypnea and shortness of breath secondary to infection, resolved. SUMMARY: This is a 73-year-old female, who has baseline chronic malnutrition, most likely severe protein-calorie deficit malnutrition secondary to patient's chronic COPD. She came in with acute exacerbation. The patient had workup done. CT scan showed multiple infiltrate. The patient was stable. She did not have any pulmonary embolism. She has oxygen saturation at rest on room air of 84%. On 4 L exertion, she is 93%. The patient is stable. She required oxygen support. Nebulizer with as well. The patient received nebulizer treatment along with antibiotics. Consultation with Dr. Jaime Beckham MD, her torch operator, obtained. The patient did better. She was stable. She had her treatment. The patient did well. Her hypoxia resolved. The patient is stable to be discharged home. Follow up as an outpatient with her family physician and Dr. Jaime Beckham for any further adjustment of her medication if needed. The patient's medication reconciliation was done. The patient was stable and discharged home began nebulizer treatments. She did finish the course of antibiotics. Medication reconciliation was done. Please review the medication list. The patient is to follow up with Dr. Jiame Bekcham, her torch operator for adjustment of her breathing treatment as an outpatient. MD GONZALO Justice/DONALL /[id number]
== END 2019-03-03 12:20 | disposition home or self-care (01) | DRG 193 ==
LOC: FSED 17:05 → ERHOLD 18:43 → MED/SURG2 22:18 → OBSVTOIN 02-26 10:38
PROVIDERS: ADMIT Internal Medicine; ATTEND Internal Medicine
DX: J18.9 Pneumonia, unspecified organism (principal); E43 Unspecified severe protein-calorie malnutrition; J96.01 Acute respiratory failure with hypoxia; J44.0 Chronic obstructive pulmonary disease with (acute) lower respiratory infection; Z68.1 Body mass index [BMI] 19.9 or less, adult; J44.1 Chronic obstructive pulmonary disease with (acute) exacerbation; I70.90 Unspecified atherosclerosis; R63.4 Abnormal weight loss; E27.9 Disorder of adrenal gland, unspecified; E11.9 Type 2 diabetes mellitus without complications; J20.9 Acute bronchitis, unspecified
CPT/HCPCS: 36415; 71045; 71260; 74150; 80048; 80053; 82553; 82948; 83735; 83880; 84443; 84484; 85007; 85025; 85027; 87070; 87205; 87633; 93005; 94640; 99284; G0378; J1650; J1956; J2920; J2930; J7050